=== PATIENT | female | born 1990 | race Caucasian/White ===

== ENCOUNTER 2016-07-28 21:48 | Observation (INO) ==
[2016-07-28 22:28] LABS: Bilirubin,Urine Negative (Negative); Blood,Urine Negative (Negative); Clarity,Urine Clear (Clear); Color,Urine Yellow (Yellow); Glucose,Urine (UA) Normal (Normal); Ketones,Urine Trace mg/dL (Negative); Leukocyte Esterase,Urine Negative (Negative); Nitrite,Urine Negative (Negative); PH,Urine 6.5 pH Units (5.0-8.0); Protein,Urine Negative (Neg-Trace); Specific Gravity,Urine 1.006 (1.010-1.025); Urobilinogen,Urine Normal (Normal)
--- NOTE | 2016-08-01 15:45 | Discharge Summary ---
Date of Encounter: 07/28/16 Time of Encounter: 23:30 - Discharge Diagnosis (1) 33 weeks gestation of Priority: Secondary Status: Acute (2) ROM (rupture of membranes), premature Priority: Primary Status: Ruled-out Qualifiers: PROM onset of labor timing: unspecified duration between rupture of membranes and onset of labor PROM gestational age: -third trimester Qualified Code(s): O42.913 - premature rupture of membranes, unspecified as to length of time between rupture and onset of labor, third trimester Data Procedures and tests throughout hospitalization: Laboratory Tests 07/28/16 22:00 Urine Color Yellow Urine Clarity Clear Urine pH 6.5 Ur Specific Leroy 1.006 L Urine Protein Negative Urine Glucose (UA) Normal Urine Ketones Trace H Urine Blood Negative Urine Nitrite Negative Urine Bilirubin Negative Urine Urobilinogen Normal Ur Leukocyte Esterase Negative Ur Culture Indicated? NO Date of admission: 07/28/16 21:48 Primary care physician: PCP NO - Patient Status Disposition: Home, Self-Care Condition: Good Functional capacity at discharge: independent ambulation Overall status at discharge: patient is progressing back to baseline - Discharge Instructions Follow Up With: NO,PCP [Primary Care Provider] - Additional Instructions: LABOR AND DELIVERY DISCHARGE INSTRUCTIONS Signs and Symptoms to be Reported to your Doctor Immediately: * Sudden gush, continuous or intermittent lead of fluid from vagina (note the time of gush and color of fluid) * Onset of bright red vaginal bleeding with or without pain (if you had a vaginal exam during this visit you may notice some dark red spotting. This is normal.) * Lower abdominal cramping or backache that is premenstrual-like feeling. * More than 6 contractions in one hour. * Burning during urination, having to urinate more frequently or pain in your mid-back. * A change in the baby's activity. This could be an increase or decrease in activity. * Severe headache which does not go away with tylenol. * Sudden swelling in the face, hands, arms and/or legs. * Upper abdominal pain - sometimes associated with heartburn or nausea and is not relieved by Maalox, Mylanta or Tums. * Dizziness or blurred vision or visual disturbances (seeing stars/lights). * Kick Counts One hour after a meal, lay down on one side in a quiet place. Count the number of yamileth the baby moves during an hour. If less than 6 movements, notify your physician. Diet: *Force fluids - 8-10 tall glasses of fluid per day. May include popsicles and jello. *Limit caffeine - this includes chocolate, coffee, tea, any soft drink containing such as all ulices, Jassi Yellow and Mountain Dew - Diet and Activity Activity: increase activity as tolerated Diet: advance to your usual diet Hospital Course [employer]PER[employer] Time Attestation: Total time spent providing and/or coordinating discharge services: Exam - Constitutional Vitals: per nursing - VTE Reasons for not Prescribing Prophylaxis: Treatment not Indicated - Low risk for VTE - Attending Attestation sheeba paige md facog
== END 2016-07-28 23:54 | disposition home or self-care (01) ==
LOC: 1NENULAB
PROVIDERS: ADMIT Obstetrics & Gynecology; ATTEND Obstetrics & Gynecology

== ENCOUNTER 2016-08-31 20:01 | Inpatient (IN) ==
--- NOTE | 2016-08-31 19:52 | OB/GYN History & Physical ---
Date of Encounter: 08/31/16 Time of Encounter: 19:46 Assessment and Plan (1) 38 weeks gestation of Current visit: Yes Status: Acute (2) Rupture of membranes with clear amniotic fluid Current visit: Yes Status: Acute (3) Group B streptococcal infection during Current visit: Yes Status: Acute History of Present Illness Chief complaint: rupture of membranes HPI: Ms. Schwab is a 26 year old female [id number], 38 weeks, and GBS (+), with no other previous complications during this . PAtinet states that the last time she had a cervical check was last week and it at that time she was 3cm dilated. Patient states that she felt clear fluid rupture with small blood tinge at 1500 today with contractions spacing out around 10-15 minutes. Her last evaluation in the OB department was in [facility] for concerns of premature rupture of membranes at 33 weeks, but was cleared and sent home. Patient is currently on vitamins, and denies any other medications at this time. She is nitrizine blue positive at this time. Past Med Surg Social Fam HX - Past Medical History Medical history: no medical history Psychiatric history: no psych history - Past Surgical History Surgical History: appendectomy, cholecystectomy, other - Social History Smoking Status: Former smoker Alcohol use: none Drug use: none - Family History Mother Hx Family Cardiac Disorders: No Hx Family Respiratory Disorders: No Hx Family Cancer: No Hx Family GI Disorders: No Hx Family Endocrine Disorder: No Hx Family Neuromuscular Disorders: No Hx Family Neurologic Disorders: No Hx Family HEENT Disorders: No Hx Family Autoimmune Disorders: No Obstetrical History - Pregnancies : 5 Para: 3 Term: 3 : 0 Ab's: 1 Livin Review of System OB All systems PM: reviewed and no additional remarkable complaints except as stated - Constitutional Constitutional ROS IM: as per HPI, no fever(s) - Genitourinary Genitourinary: as per HPI, vaginal discharge Exam - Constitutional Constitutional: well developed, well nourished, no acute distress, average body habitus - HEENT HEENT: Normocephaly, Mucus Membranes Moist - Neck Neck exam: full ROM, normal inspection - Abdomen Abdomen: Present: bowel sounds normal, gravid - Vulva Vulva: bilateral: normal - Vagina Vagina: Present: normal moisture - Cervix Dilation: 3 (per RN) Effacement: 70 (per RN) Station: -2 - Uterus Uterus exam: Present: normal size, normal contour - Anus/Rectum Anus/Rectum: Present: normal perianal skin, heme negative Results All other labs normal.
[~2016-08-31 20:01] MED LIST: *HR* FentaNYL (PF) 100 MCG/2 ML VIAL IVP PRN; Famotidine 20 MG/2 ML VIAL IVP PRN; Naloxone 0.4 MG/ML INJ IVP PRN; Ondansetron 4 MG/2 ML VIAL IVP PRN; Penicillin G Potassium 5,000,000 UNIT in D5% in Water (Mini-Bag+) 100 ML IVPB ONE; Ringers Solution, Lactated 1,000 ML IVC SCH
[2016-08-31] MEDS ORDERED: Ringers Solution, Lactated 1,000 ML ONE (20:42)
[2016-08-31 21:12] LABS: Basophils % 0.2 %; Eosinophils % 0.4 %; Hematocrit 38.6 % (35.3-44.9); Hemoglobin 12.9 g/dL (11.5-15.4); Immature Granulocytes % 0.4 % (0-4); Lymphocytes % 25.9 %; Mean Corpuscular HGB Conc 33.4 g/dL (31.6-35.5); Mean Corpuscular Hemoglobin 27.8 pg (28.0-33.3); Mean Corpuscular Volume 83.2 fL (83.0-100.0); Mean Platelet Volume 12.6 fL (9.4-12.4); Monocytes % 5.2 %; Neutrophils # 6.9 K/mcL (1.6-8.9); Platelet Count 195 K/mcL (140-400); Red Blood Count 4.64 M/mcL (3.82-4.97); Red Cell Distribution Width 13.3 % (11.5-14.5); Segmented Neutrophils % 67.9 %
[2016-08-31 21:13] LABS: Lymphocytes # 2.6 K/mcL (0.6-4.6); Monocytes # 0.5 K/mcL (0.0-1.3)
--- NOTE | 2016-09-01 01:49 | OB Labor Progress Note ---
Date of Encounter: 09/01/16 Time of Encounter: 00:38 Labor Progress Note - Subjective Subjective: Pt states feels contractions but no increased in pain, and "would like to get this show on the road" and start pitocin - Cervix Cervix: 3/70/-2 - Heart Tones Heart Tones: 125/moderate/+accels/-decels intermittant monitoring - Interventions Interventions: Will start pitocin - Plan Plan: Pitocin per policy PCN for GBS Regular diet continuous monitoring on pitocin
--- NOTE | 2016-09-01 01:51 | OB Labor Progress Note ---
Date of Encounter: 09/01/16 Time of Encounter: 01:50 Labor Progress Note - Subjective Subjective: Pt states does not want pitocin at this time now since she would have to stay in bed to be monitored and also feel contractions are picking up in strength. - Plan Plan: Pitocin if patient desires.
[2016-09-01] MEDS ORDERED: Oxytocin 20 units/ LR 1000 mL 20 UNIT/1,000 ML BAG IVC ONE ×3 (03:59→11:32)
[2016-09-01] MEDS: *HR* Nalbuphine 20 MG/ML AMPUL IVP PRN ×2 (05:35→09:22)
--- NOTE | 2016-09-01 07:14 | OB Labor Progress Note ---
Date of Encounter: 08/31/16 Time of Encounter: 07:12 Labor Progress Note - Subjective Subjective: Pt resting comfortable in bed after nubain, states does not feel contractions at this time.. - Heart Tones Heart Tones: 120/moderate/-accels/-decels (+accels before nubain) - [place]: 2-4 minutes moderate palpation - Interventions Interventions: Will place IUPC for contraction monitoring - Plan Plan: Pitocin per policy PCN for GBS treatment Continuous monitoring due to pitocin
[2016-09-01] MEDS: Penicillin G Potassium 2,500,000 UNIT in D5% in Water 100 ML IVPB SCH ×2 (09:36→13:09)
--- NOTE | 2016-09-01 10:16 | OB/GYN Procedure Note ---
Delivery - Delivery Date: 09/01/16 Provider: Nancy Miller Intrapartum events: none Delivery augmentation: pitocin Delivery monitor: external FHT, external uterine, internal uterine Anesthesia: intravenous Estimated Blood Loss: 300 - Infant (s) A Infant Delivery Date: 09/01/16 Delivery Time: 09:54 Presentation: vertex Position: WINSOME Route of delivery: Gender: Male Viability: Viable Pounds: 7 Ounces: 3 at 1 minute: 8 at 5 mins: 9 Shoulder Dystocia: not encountered Specimens collected: cord blood Placenta: spontaneous Cord: nuchal cord (x2), 3 umbilical vessels, nuchal reduced - Repair Episiotomy: none Laceration Description: None - Complications Delivery complications: none Delivery comments: Patient complete and pushing with no anesthesia with a spontaneous vaginal delivery after 1 push of a vigorous male infant in a WINSOME position, weighing 7 lbs. 3 oz. with Apgars of 8 at 1 minute and 9 at 5 minutes. Nuchal 2 was reduced on the perineum. Infant was placed on the maternal abdomen. Cord was clamped and cut after pulsations ceased. Cord blood obtained. Placenta was delivered spontaneous and intact. Three-vessel cord confirmed. No lacerations noted on the perineum, vagina or labia. Estimated blood loss 300 mL's. Complications none. - Disposition Mom disposition: stable in LDR [place] disposition: stable in LDR
[2016-09-01] MEDS ORDERED: Oxytocin 20 units/ LR 1000 mL 20 UNIT/1,000 ML BAG IV SCH (11:32)
[2016-09-01] MEDS ORDERED: Rho Immune Globulin 1,500 UNIT SYRINGE IM PRN (11:32)
[2016-09-01] MEDS ORDERED: Measles/Mumps/Rubella Vacc 0.5 ML VIAL SQ PRN (11:32)
[2016-09-01] MEDS ORDERED: Acetaminophen 325 MG TABLET PO PRN (11:32)
[2016-09-01] MEDS: Ibuprofen 600 MG TABLET PO PRN ×2 (11:50→22:12)
[2016-09-02 04:24] LABS: Basophils % 0.3 %; Eosinophils # 0.1 K/mcL (0.0-0.6); Eosinophils % 0.8 %; Hematocrit 32.3 % (35.3-44.9); Immature Granulocytes % 0.6 % (0-4); Lymphocytes # 3.3 K/mcL (0.6-4.6); Lymphocytes % 30.1 %; Mean Corpuscular HGB Conc 33.1 g/dL (31.6-35.5); Mean Corpuscular Hemoglobin 28.2 pg (28.0-33.3); Mean Platelet Volume 12.5 fL (9.4-12.4); Monocytes # 0.8 K/mcL (0.0-1.3); Monocytes % 7.1 %; Neutrophils # 6.7 K/mcL (1.6-8.9); Platelet Count 185 K/mcL (140-400); Red Cell Distribution Width 13.4 % (11.5-14.5); Segmented Neutrophils % 61.1 %
[2016-09-02 04:28] LABS: Hemoglobin 10.7 g/dL (11.5-15.4)
[2016-09-02 08:26] VITALS: BP 130/74
[2016-09-02] MEDS ORDERED: Prenatal Vit/FA 1 EACH TABLET PO SCH (09:00)
[2016-09-02] MEDS: Ibuprofen 600 MG TABLET PO PRN (09:37)
--- NOTE | 2016-09-02 09:50 | Discharge Summary ---
Date of Encounter: 09/02/16 Time of Encounter: 09:47 - Discharge Diagnosis (1) Spontaneous vaginal delivery Priority: Primary Status: Resolved Comments: Mrs. Schwab, now [id number] is 1 day s/p spontaneous full term vaginal delivery without induction or complications. GBS (+) and received appropriate antibiotics. She reports mild spotting which is improving. Patient is feeling great today with no complaints. Moving and ambulating without difficulty or pain. Appetite good. No difficulty with urination or bowel movement. No abdominal or pelvic pain. Patient's only question is when she can go home. (2) Group B streptococcal infection during Priority: Secondary Status: Resolved Comments: as above. - Discharge Medications Home Medications: [id number]/Iron Fumarate/FA/Dss [ 19 Tablet] 1 tab PO DAILY 08/31/16 [ History] Ibuprofen [Motrin] 600 mg PO Q6HR PRN #40 tab 09/02/16 [Rx] Allergies/Adverse Reactions: Allergies No Known Allergies Allergy (Verified 08/31/16 19:59) Data Procedures and tests throughout hospitalization: Laboratory Tests 08/31/16 09/02/16 19:55 04:02 WBC 10.2 11.1 RBC 4.64 3.80 L Hgb 12.9 10.7 L D Hct 38.6 32.3 L MCV 83.2 85.0 MCH 27.8 L 28.2 MCHC 33.4 33.1 RDW 13.3 13.4 Plt Count 195 185 MPV 12.6 H 12.5 H Immature Gran % 0.4 0.6 Seg Neutrophils % 67.9 61.1 Lymphocytes % 25.9 30.1 Monocytes % 5.2 7.1 Eosinophils % 0.4 0.8 Basophils % 0.2 0.3 Neutrophils # 6.9 6.7 Lymphocytes # 2.6 3.3 Monocytes # 0.5 0.8 Eosinophils # 0.0 0.1 Basophils # 0.0 0.0 Labs on day of discharge: Labs from last 24 hours 09/02/16 04:02 WBC 11.1 RBC 3.80 L Hgb 10.7 L D Hct 32.3 L MCV 85.0 MCH 28.2 MCHC 33.1 RDW 13.4 Plt Count 185 MPV 12.5 H Immature Gran % 0.6 Seg Neutrophils % 61.1 Lymphocytes % 30.1 Monocytes % 7.1 Eosinophils % 0.8 Basophils % 0.3 Neutrophils # 6.7 Lymphocytes # 3.3 Monocytes # 0.8 Eosinophils # 0.1 Basophils # 0.0 Date of admission: 08/31/16 20:02 Primary care physician: PCP NO Consults: 09/01/16 11:32 Consult to Coffee Weigher [CONS] Routine Comment: Vaginal delivery, consult needed Discharging clinician: Zia Flowers Anticipated date of discharge: 09/02/16 - Patient Status Disposition: Home, Self-Care Condition: Good Functional capacity at discharge: independent ambulation Overall status at discharge: patient is back to baseline - Discharge Instructions Instructions: Vaginal Delivery (GEN) Follow Up With: Cynthia Baker DO [Partnered Physician] - Additional Instructions: Please follow-up with your primary OB,Dr. Baker, in 4 weeks or sooner if needed. - Diet and Activity Activity: increase activity as tolerated Diet: advance to your usual diet Hospital Course Procedures: Vaginal delivery Reason for admission: active labor Delivery: Episiotomy: none Laceration: none Other procedures: none complications: none Discharge diagnosis: IUP at term delivered, pre-eclampsia baby: male Time Attestation: Total time spent providing and/or coordinating discharge services: Exam - Constitutional Vitals: Temp Pulse Resp BP Pulse Ox 97.9 F 59 14 130/74 98 09/02/16 08:25 09/02/16 08:25 09/02/16 08:25 09/02/16 08:25 09/02/16 08:25 General appearance IM: cooperative, A&O X 3, pleasant, no acute distress - Respiratory Respiratory exam: Present: CTAB - Cardiovascular Cardiovascular exam IM: Present: RRR, +S1, +S2 - GI/Abdominal GI/Abdominal exam IM: normal bowel sounds, soft, no peritoneal signs - Uterine Tone: Firm Uterus Position: 2 Fingers Below Umbilicus - Extremities Exam Extremities exam IM: Present: normal capillary refill, warm, radial pulses palpable and symetrical. Absent: pedal edema - Neurological Exam Neurological exam: alert, oriented X3
== END 2016-09-02 17:35 | disposition home or self-care (01) | DRG 560 ==
LOC: 1NENULAB → 1NENUOBS 09-01 13:15
PROVIDERS: ADMIT Obstetrics & Gynecology; ATTEND Obstetrics & Gynecology

== ENCOUNTER → 2019-03-06 14:26 | Observation (INO) ==
[2019-03-06 13:47] LABS: Bilirubin,Urine Negative (Negative); Blood,Urine Negative (Negative); Clarity,Urine Cloudy (Clear); Color,Urine Dark Yellow (Yellow); Glucose,Urine (UA) Normal (Normal); Ketones,Urine Negative (Negative); Leukocyte Esterase,Urine Moderate (Negative); Nitrite,Urine Negative (Negative); Protein,Urine Negative (Neg-Trace); Specific Gravity,Urine 1.017 (1.010-1.025); Urobilinogen,Urine >=8.0 mg/dL (Normal)
[2019-03-06 13:50] LABS: Bacteria,Urine None Seen per hpf (None-Few); Hyaline Casts,Urine None Seen per lpf (None-Few); RBC,Urine 0-3 per hpf (0-3); Squamous Epithelial Cell,Urine Many per lpf (None-Few); WBC,Urine 15-30 per hpf (0-3)
--- NOTE | 2019-03-06 14:04 | OB/GYN History & Physical ---
Date of Encounter: 03/06/19 Time of Encounter: 14:01 Assessment and Plan (1) 33 weeks gestation of Current visit: Yes Status: Acute 28yo at 34+0wks GA who presents for vaginal pain and cramping, concern for PTL. Patient denies VB/LOF/contraction(S). Active fetus. Baseline 130bpm, mod shasih, +accels, no decels. SVE: 1cm/th/-1 (multiparous cervix). Patient unchanged. OK to DC to home today with close f/u. Given PTL precaution(S). MD CODIE History of Present Illness HPI: Ms. Schwab is a 28 year old female at 34+0wks GA who presents from "[facility]" this afternoon with increasing vaginal cramping, back tightening. She has a history of 4 prior uncomplicated vaginal deliveries. THe patient is currently taking subutex due to a history of PSA. She denies current use of illegal substances. Reports active fetus. Denies n/v/d. Denies VB/LOF/active contraction(s). Patient was last seen by JAKE Clement and was found to be 1cm dilated. Past Med Surg Social Fam HX - Past Medical History Medical history: no medical history Psychiatric history: no psych history - Past Surgical History Surgical History: appendectomy, cholecystectomy, other Additional surgical history: corrective eye surgery x2, varicose veins scoping in right leg - Social History Smoking Status: Former smoker Smokeless Tobacco Status: No Alcohol use: none Drug use: none - Family History Mother Adopted: No Family Member Ethnicity: Non- Twin of Family Member: Yes, Fraternal Living Status: Still Living Hx Family Cardiac Disorders: No Hx Family Respiratory Disorders: No Hx Family Cancer: No Hx Family GI Disorders: No Hx Family Genitourinary Disorders: No Hx Family Endocrine Disorder: No Hx Family Musculoskeletal Disorders: No Hx Family Neuromuscular Disorders: No Hx Family Neurologic Disorders: No Hx Family HEENT Disorders: No Hx Family Autoimmune Disorders: No Hx Family Reproductive Disorders: No Hx Family Psychosocial Disorders: No Hx Family Medical Disorders: No Obstetrical History - Pregnancies : 6 Para: 4 Term: 4 : 0 Ab's: 1 Livin Medications and Allergies Buprenorphine HCl [Subutex] 8 mg SL BID 03/06/19 [History] Escitalopram [Lexapro] 10 mg pe PO DAILY 03/06/19 [History] Pnv95/Ferrous Fumarate/FA [ Vitamin Tablet] 1 each PO DAILY 03/06/19 [History] Allergy/AdvReac Type Severity Reaction Status Date / Time No Known Allergies Allergy Verified 08/31/16 19:59 Exam - Constitutional Constitutional: well developed, well nourished, no acute distress, average body habitus - HEENT HEENT: Normocephaly - Neck Neck exam: full ROM - Cardiovascular Cardiovascular exam: RRR - Abdomen Abdomen: Present: bowel sounds normal - Extremities Extremities exam: full ROM - Vagina Vagina: Present: normal moisture - Cervix Dilation: 1 Effacement: 50 Station: -1 - Uterus Uterus exam: Present: normal size, normal contour Results Abnormal lab results Urine Clarity Cloudy (Clear) A 03/06/19 13:25 Urine Urobilinogen >=8.0 mg/dL (Normal) H 03/06/19 13:25 Ur Leukocyte Esterase Moderate (Negative) H 03/06/19 13:25 Urine Microscopic WBC 15-30 per hpf (0-3) H 03/06/19 13:25 Ur Squamous Epith Cells Many per lpf (None-Few) H 03/06/19 13:25 Ur Culture Indicated? YES (NO) A 03/06/19 13:25 All other labs normal. - VTE Reasons for not Prescribing Prophylaxis: Treatment not Indicated - Low risk for VTE
[2019-03-06 14:08] LABS: Amphetamine Screen,Urine Negative ng/mL (Cutoff=1000); Barbiturate Screen,Urine Negative ng/mL (Cutoff=200); Benzodiazepines Screen,Urine Negative ng/mL (Cutoff=200); Cannabinoid Screen,Urine Negative ng/mL (Cutoff = 50); Cocaine Screen,Urine Negative ng/mL (Cutoff= 300); Opiate Screen,Urine Negative ng/mL (Cutoff=300); Phencyclidine Screen,Urine Negative ng/mL (Cutoff=25)
== END | disposition home or self-care (01) ==
LOC: 1NENULAB
PROVIDERS: ADMIT Advanced Practice Midwife; ATTEND Advanced Practice Midwife

== ENCOUNTER 2019-04-06 13:58 | Inpatient (IN) ==
[~2019-04-06 13:58] MED LIST changes: -*HR* FentaNYL (PF) 100 MCG/2 ML VIAL IVP PRN; +Epidural Premix (fent/bupiv) 110 ML EP SCH; +Metoclopramide 10 MG/2 ML VIAL IVP PRN; -Ondansetron 4 MG/2 ML VIAL IVP PRN; -Penicillin G Potassium 5,000,000 UNIT in D5% in Water (Mini-Bag+) 100 ML IVPB ONE; -Ringers Solution, Lactated 1,000 ML IVC SCH
[2019-04-06 14:57] LABS: Amphetamine Screen,Urine Negative ng/mL (Cutoff=1000); Barbiturate Screen,Urine Negative ng/mL (Cutoff=200); Benzodiazepines Screen,Urine Negative ng/mL (Cutoff=200); Cannabinoid Screen,Urine Positive ng/mL (Cutoff = 50); Cocaine Screen,Urine Negative ng/mL (Cutoff= 300); Opiate Screen,Urine Negative ng/mL (Cutoff=300); Phencyclidine Screen,Urine Negative ng/mL (Cutoff=25)
[2019-04-06 15:09] LABS: Basophils % 0.3 %; Eosinophils # 0.1 K/mcL (0.0-0.6); Eosinophils % 1.3 %; Hematocrit 44.7 % (35.3-44.9); Immature Granulocytes % 0.3 % (0-4); Lymphocytes # 2.2 K/mcL (0.6-4.6); Lymphocytes % 21.3 %; Mean Corpuscular HGB Conc 33.6 g/dL (31.6-35.5); Mean Corpuscular Hemoglobin 29.2 pg (28.0-33.3); Mean Corpuscular Volume 87.1 fL (83.0-100.0); Mean Platelet Volume 12.9 fL (9.4-12.4); Monocytes # 0.4 K/mcL (0.0-1.3); Monocytes % 3.8 %; Neutrophils # 7.7 K/mcL (1.6-8.9); Platelet Count 191 K/mcL (140-400); Red Blood Count 5.13 M/mcL (3.82-4.97); Red Cell Distribution Width 13.8 % (11.5-14.5); White Blood Count 10.5 K/mcL (4.3-11.1)
[2019-04-06] MEDS ORDERED: Oxytocin 20 units/ LR 1000 mL 20 UNIT/1,000 ML BAG IVC SCH (16:15)
[2019-04-06] MEDS: Ringers Solution, Lactated 1,000 ML IVC SCH (16:27)
[2019-04-06] MEDS ORDERED: Propofol 500 MG/50 ML INFUS..BTL ONE (21:55)
[2019-04-06] MEDS ORDERED: *HR* Succinylcholine 200 MG/10 ML VIAL IVP ONE (21:55)
[2019-04-06] MEDS ORDERED: Ringers Solution, Lactated 1,000 ML ONE (22:02)
[2019-04-06] MEDS ORDERED: *HR* Midazolam HCl 2 MG/2 ML VIAL ONE (22:03)
[2019-04-06] MEDS ORDERED: *HR* FentaNYL (PF) 250 MCG/5 ML VIAL ONE ×4 (22:06→23:05)
[2019-04-06] MEDS ORDERED: Azithromycin 500 MG in 0.9 % Sodium Chloride 250 ML IVPB ONE (22:19)
[2019-04-06] MEDS ORDERED: Ondansetron 4 MG/2 ML VIAL ONE (22:23)
[2019-04-06] MEDS ORDERED: Dexamethasone 4 MG/ML VIAL ONE (22:23)
[2019-04-06] MEDS ORDERED: *HR* Rocuronium Bromide 50 MG/5 ML VIAL ONE (22:23)
[2019-04-06] MEDS ORDERED: Ketorolac 30 MG/ML VIAL ONE (22:45)
[2019-04-06] MEDS ORDERED: Neostigmine Methylsulfate 3 MG/3 ML SYRINGE ONE (22:55)
[2019-04-06] MEDS ORDERED: *HR* HYDROMORPHONE 2 MG/ML VIAL ONE ×2 (23:25→23:33)
[2019-04-06] MEDS ORDERED: Ketamine *HR* 500 MG/10 ML MDV ONE (23:47)
[2019-04-07] MEDS ORDERED: Morphine PCA 30 MG/ 30 ML 30 ML PCA.VIAL IVC PRN (00:38)
[2019-04-07] MEDS ORDERED: Ondansetron 4 MG/2 ML VIAL IVP PRN (00:38)
[2019-04-07] MEDS ORDERED: Acetaminophen IV 1,000 MG/100 ML INFUS..BTL IVPB SCH (00:38)
[2019-04-07] MEDS ORDERED: Sennosides 8.6 MG TABLET PO PRN (00:38)
[2019-04-07] MEDS ORDERED: Rho Immune Globulin 1,500 UNIT SYRINGE IM ONE (00:38)
[2019-04-07] MEDS ORDERED: Metoclopramide 10 MG/2 ML VIAL IVP PRN (00:38)
[2019-04-07] MEDS ORDERED: Simethicone 80 MG TAB.CHEW PO PRN (00:38)
[2019-04-07] MEDS ORDERED: Oxytocin 20 units/ LR 1000 mL 20 UNIT/1,000 ML BAG IVC SCH (00:38)
[2019-04-07] MEDS: Acetaminophen IV 1,000 MG/100 ML INFUS..BTL IVPB SCH ×3 (00:47→14:53)
[2019-04-07] MEDS: Ketorolac 30 MG/ML VIAL IVP SCH ×4 (04:00→17:40)
[2019-04-07 06:37] LABS: Basophils % 0.1 %; Eosinophils % 0.1 %; Hematocrit 33.5 % (35.3-44.9); Immature Granulocytes % 0.4 % (0-4); Lymphocytes % 7.2 %; Mean Corpuscular HGB Conc 34.6 g/dL (31.6-35.5); Mean Corpuscular Hemoglobin 29.2 pg (28.0-33.3); Mean Corpuscular Volume 84.4 fL (83.0-100.0); Mean Platelet Volume 12.7 fL (9.4-12.4); Monocytes # 0.4 K/mcL (0.0-1.3); Monocytes % 2.7 %; Neutrophils # 12.8 K/mcL (1.6-8.9); Platelet Count 173 K/mcL (140-400); Red Blood Count 3.97 M/mcL (3.82-4.97); Red Cell Distribution Width 13.7 % (11.5-14.5); Segmented Neutrophils % 89.5 %; White Blood Count 14.3 K/mcL (4.3-11.1)
[2019-04-07 06:39] LABS: Hemoglobin 11.6 g/dL (11.5-15.4)
[2019-04-07] MEDS: metroNIDAZOLE 500 MG TABLET PO SCH ×2 (09:12→20:24)
[2019-04-07] MEDS: cephALEXin 500 MG CAPSULE PO SCH ×2 (09:12→20:25)
[2019-04-07] MEDS: *HR* Buprenorphine HCl 8 MG TAB.SUBL SL SCH ×2 (09:13→20:25)
[2019-04-07] MEDS ORDERED: Ringers Solution, Lactated 1,000 ML ONE (10:14)
[2019-04-07] MEDS: Ringers Solution, Lactated 1,000 ML IVC SCH (10:19)
[2019-04-07] MEDS ORDERED: Acetaminophen 325 MG TABLET PO PRN (22:30)
[2019-04-08] MEDS: Ibuprofen 600 MG TABLET PO SCH ×2 (03:13→07:50)
[2019-04-08] MEDS: Prenatal Vit/FA 1 EACH TABLET PO SCH (07:50)
[2019-04-08] MEDS: cephALEXin 500 MG CAPSULE PO SCH ×2 (08:51→21:09)
[2019-04-08] MEDS: *HR* Buprenorphine HCl 8 MG TAB.SUBL SL SCH ×2 (08:51→21:10)
[2019-04-08] MEDS: metroNIDAZOLE 500 MG TABLET PO SCH ×2 (08:51→21:10)
[2019-04-09] MEDS ORDERED: Lanolin 7 G OINT...G. TP PRN (01:34)
[2019-04-09 08:10] VITALS: BP 140/78
[2019-04-09] MEDS: *HR* Buprenorphine HCl 8 MG TAB.SUBL SL SCH (10:23)
[2019-04-09] MEDS: Prenatal Vit/FA 1 EACH TABLET PO SCH (10:25)
[2019-04-09] MEDS: metroNIDAZOLE 500 MG TABLET PO SCH (10:27)
== END 2019-04-09 11:59 | disposition home or self-care (01) | DRG 540 ==
LOC: 1NENULAB → 1NENUOBS 04-07 02:03
PROVIDERS: ADMIT Registered Nurse; ATTEND Registered Nurse